=== PATIENT | female | born 1970 | race African-American/Black ===

== ENCOUNTER 2018-11-09 21:09 | Emergency (ER) | payer MEDICAID ==
[~2018-11-09] VITALS: Ht 152.4 cm; Wt 69.1 kg
[~2018-11-09 21:09] MED LIST: ACYC400T PO; CIPR500S4 PO; HYDR-3112 PO; HYDR-3965 PO
[2018-11-09] MEDS ORDERED: TRAZ-220 PO (21:28)
[2018-11-09] MEDS ORDERED: VENL50TA44 PO (21:28)
[2018-11-09] MEDS ORDERED: PRAZ1 PO (21:28)
[2018-11-09] MEDS ORDERED: KETOROLAC TROMETHAMINE 10 MG TABLET PO ONE (22:45)
[2018-11-09] MEDS ORDERED: CYCLOBENZAPRINE HCL 10 MG TABLET PO ONE (22:45)
[2018-11-10 01:12] VITALS: BP 127/58
== END 2018-11-10 01:37 | disposition home or self-care (01) ==
LOC: EMS 21:10
DX: M54.2 Cervicalgia (principal); Z88.0 Allergy status to penicillin; Z88.2 Allergy status to sulfonamides
CPT/HCPCS: 72040

== ENCOUNTER 2022-06-16 14:38 | Emergency (ER) | payer MEDICAID ==
[~2022-06-16] VITALS: Ht 157.5 cm; Wt 90.9 kg
[~2022-06-16 14:38] MED LIST changes: -ACYC400T PO; -CIPR500S4 PO; -HYDR-3112 PO; -HYDR-3965 PO; +HYDR25TA82 PO; +PRAZ1 PO; +TRAZ-257 PO; +VENL50TA44 PO
[2022-06-16 15:45] VITALS: BP 136/93
[2022-06-16] MEDS ORDERED: LORazepam 1 MG TABLET PO ONE (16:15)
[2022-06-16 16:17] LABS: BASOPHILS % (AUTO) 0.5 % (0.0-2.0); EOSINOPHILS % (AUTO) 0.5 % (1.0-6.0); HEMATOCRIT 43.3 % (36-46); HEMOGLOBIN 14.5 g/dL (12.0-16.0); LYMPHOCYTES # (AUTO) 3.2 K/uL (1.0-4.8); LYMPHOCYTES % (AUTO) 24.1 % (22.0-44.0); MEAN CORPUSCULAR HEMOGLOBIN 31.5 pg (26.0-34.0); MEAN CORPUSCULAR HGB CONC 33.5 G/dL (31.0-37.0); MEAN CORPUSCULAR VOLUME 94 fL (80-100); MONOCYTES # (AUTO) 0.6 K/uL (0.1-1.0); MONOCYTES % (AUTO) 4.8 % (2.0-9.0); NEUTROPHILS # (AUTO) 9.3 K/uL (1.8-7.7); NEUTROPHILS % (AUTO) 70.1 % (40.0-70.0); PLATELET COUNT (AUTO) 255 K/uL (150-450); RED BLOOD CELL COUNT(AUTO) 4.61 MIL/uL (4.00-5.20); RED CELL DISTRIBUTION WIDTH 12.8 % (11.5-14.5)
[2022-06-16 16:26] LABS: ANION GAP 5 mmol/L (8-16); CALCIUM, TOTAL 9.7 mg/dL (8.8-10.5); CARBON DIOXIDE 30 mmol/L (22-29); CHLORIDE 105 mmol/L (98-107); CREATININE 0.88 mg/dL (0.60-1.30); GLUCOSE,RANDOM 99 mg/dL (70-110); POTASSIUM 3.4 mmol/L (3.5-5.1); SODIUM SERUM 140 mmol/L (136-145); UREA NITROGEN, BLOOD 13 mg/dL (7-18)
[2022-06-16 16:30] LABS: GLOMERULAR FILTR. RATE CALC > 60 mL/min (>60)
[2022-06-16 16:32] LABS: ALANINE AMINOTRANSFERASE 40 U/L (12-78); ALBUMIN 3.8 g/dL (3.4-5.0); ALKALINE PHOSPHATASE 112 U/L (46-116); ASPARTATE AMINOTRANSFERASE 33 U/L (15-37); BILIRUBIN,TOTAL 0.4 mg/dL (0.1-1.0); TOTAL PROTEIN, SERUM 7.7 g/dL (6.4-8.2)
== END 2022-06-17 00:08 | disposition home or self-care (01) ==
LOC: EMS 14:42
DX: F41.9 Anxiety disorder, unspecified (principal); F31.9 Bipolar disorder, unspecified; F20.9 Schizophrenia, unspecified; B00.9 Herpesviral infection, unspecified; K64.9 Unspecified hemorrhoids; Z88.0 Allergy status to penicillin; Z88.2 Allergy status to sulfonamides
CPT/HCPCS: 99285; 80053; 85025; 36415; G0480

== ENCOUNTER 2022-06-18 08:17 | Emergency (ER) | payer MEDICAID ==
[~2022-06-18] VITALS: Ht 154.9 cm; Wt 75.0 kg
[2022-06-18] MEDS ORDERED: LORazepam 1 MG TABLET PO ONE (08:45)
[2022-06-18 09:34] LABS: BASOPHILS % (AUTO) 0.7 % (0.0-2.0); EOSINOPHILS % (AUTO) 1.2 % (1.0-6.0); HEMATOCRIT 40.9 % (36-46); HEMOGLOBIN 13.9 g/dL (12.0-16.0); LYMPHOCYTES # (AUTO) 3.2 K/uL (1.0-4.8); LYMPHOCYTES % (AUTO) 31.9 % (22.0-44.0); MEAN CORPUSCULAR HEMOGLOBIN 31.9 pg (26.0-34.0); MEAN CORPUSCULAR HGB CONC 33.9 G/dL (31.0-37.0); MEAN CORPUSCULAR VOLUME 94 fL (80-100); MONOCYTES # (AUTO) 0.6 K/uL (0.1-1.0); NEUTROPHILS # (AUTO) 6.1 K/uL (1.8-7.7); NEUTROPHILS % (AUTO) 60.2 % (40.0-70.0); PLATELET COUNT (AUTO) 225 K/uL (150-450); RED BLOOD CELL COUNT(AUTO) 4.36 MIL/uL (4.00-5.20); RED CELL DISTRIBUTION WIDTH 12.7 % (11.5-14.5)
[2022-06-18 09:47] LABS: ANION GAP 6 mmol/L (8-16); CALCIUM, TOTAL 9.4 mg/dL (8.8-10.5); CARBON DIOXIDE 29 mmol/L (22-29); CHLORIDE 102 mmol/L (98-107); CREATININE 0.74 mg/dL (0.60-1.30); GLOMERULAR FILTR. RATE CALC > 60 mL/min (>60); GLUCOSE,RANDOM 108 mg/dL (70-110); SODIUM SERUM 137 mmol/L (136-145); UREA NITROGEN, BLOOD 11 mg/dL (7-18)
[2022-06-18 09:50] LABS: INR 1.1 (0.9-1.1); PROTHROMBIN TIME 11.2 SEC (9.4-11.6)
[2022-06-18 09:51] LABS: ALANINE AMINOTRANSFERASE 41 U/L (12-78); ALBUMIN 3.8 g/dL (3.4-5.0); ALKALINE PHOSPHATASE 104 U/L (46-116); ASPARTATE AMINOTRANSFERASE 36 U/L (15-37); BILIRUBIN,TOTAL 0.7 mg/dL (0.1-1.0); TOTAL PROTEIN, SERUM 7.2 g/dL (6.4-8.2)
[2022-06-18 10:24] LABS: APPEARANCE,URINE CLEAR (CLEAR); BILIRUBIN,URINE NEGATIVE (NEGATIVE); GLUCOSE, URINE (UA) NEGATIVE (NEGATIVE); KETONES,URINE NEGATIVE (NEGATIVE); LEUKOCYTE ESTERASE ,URINE NEGATIVE (NEGATIVE); NITRATE,URINE NEGATIVE (NEGATIVE); OCCULT BLOOD,URINE NEGATIVE (NEGATIVE); PH,URINE 6.5 (5.0-8.0); PROTEIN,URINE NEGATIVE (NEGATIVE); SPECIFIC GRAVITIY, URINE 1.005 (1.003-1.030); UROBILINOGEN,URINE <=1.0 mg/dL (<=1.0)
[2022-06-18 10:27] LABS: AMPHET/METH SCREEN,URINE NEGATIVE (NEGATIVE); BARBITURATE SCREEN, URINE NEGATIVE (NEGATIVE); BENZODIAZEPINES SCREEN,URINE NEGATIVE (NEGATIVE); CANNABINOID SCREEN,URINE POSITIVE (NEGATIVE); COCAINE SCREEN,URINE NEGATIVE (NEGATIVE); METHADONE SCREEN, URINE NEGATIVE (NEGATIVE); OPIATE SCREEN,URINE NEGATIVE (NEGATIVE)
[2022-06-18 10:28] LABS: PHENCYCLIDINE SCREEN,URINE NEGATIVE (NEGATIVE)
[2022-06-18 10:35] LABS: BACTERIA,URINE None Seen /HPF (None Seen); RBC,URINE None Seen /HPF (0-2); SQUAMOUS EPITHELIAL CELL,UR None Seen /LPF (None Seen); WBC,URINE None Seen /HPF (0-5)
[2022-06-18 11:18] VITALS: BP 122/85
== END 2022-06-18 11:47 | disposition home or self-care (01) ==
LOC: EMS 08:50
DX: F41.9 Anxiety disorder, unspecified (principal); F20.9 Schizophrenia, unspecified; F31.9 Bipolar disorder, unspecified; K64.9 Unspecified hemorrhoids; Z88.0 Allergy status to penicillin; Z88.2 Allergy status to sulfonamides; Z87.440 Personal history of urinary (tract) infections
CPT/HCPCS: 70450; 71045; 80053; 81001; 84484; 85025; 85610; 85651; 85730; 93005; 99285; 36415-L1; 36415-TC

== ENCOUNTER 2022-06-26 06:31 | Emergency (ER) | payer MEDICAID ==
[~2022-06-26] VITALS: Ht 157.5 cm; Wt 75.0 kg
[2022-06-26] MEDS ORDERED: HydrOXYzine HCL 25 MG TABLET PO ONE (06:45)
[2022-06-26] MEDS ORDERED: IBUPROFEN 600 MG TABLET PO ONE (06:45)
[2022-06-26 07:52] LABS: APPEARANCE,URINE CLEAR (CLEAR); BILIRUBIN,URINE NEGATIVE (NEGATIVE); GLUCOSE, URINE (UA) NEGATIVE (NEGATIVE); KETONES,URINE NEGATIVE (NEGATIVE); LEUKOCYTE ESTERASE ,URINE NEGATIVE (NEGATIVE); NITRATE,URINE NEGATIVE (NEGATIVE); OCCULT BLOOD,URINE NEGATIVE (NEGATIVE); PH,URINE 6.5 (5.0-8.0); PROTEIN,URINE NEGATIVE (NEGATIVE); SPECIFIC GRAVITIY, URINE 1.007 (1.003-1.030); UROBILINOGEN,URINE <=1.0 mg/dL (<=1.0)
[2022-06-26 08:23] VITALS: BP 128/70
== END 2022-06-26 08:26 | disposition home or self-care (01) ==
LOC: EMS 06:32
DX: F41.9 Anxiety disorder, unspecified (principal); F31.9 Bipolar disorder, unspecified; F20.9 Schizophrenia, unspecified; B00.9 Herpesviral infection, unspecified; K64.9 Unspecified hemorrhoids; Z88.2 Allergy status to sulfonamides; Z88.0 Allergy status to penicillin
CPT/HCPCS: 81003; 84703; 99283

== ENCOUNTER 2022-07-01 09:36 | Emergency (ER) | payer MEDICAID ==
[~2022-07-01] VITALS: Ht 165.1 cm; Wt 75.0 kg
[2022-07-01 10:46] VITALS: BP 137/97
[2022-07-01] MEDS ORDERED: LORazepam 1 MG TABLET PO ONE (11:30)
== END 2022-07-01 11:46 | disposition home or self-care (01) ==
LOC: EMS 09:39
DX: R20.2 Paresthesia of skin (principal); F20.9 Schizophrenia, unspecified; F31.9 Bipolar disorder, unspecified; F41.9 Anxiety disorder, unspecified; Z87.440 Personal history of urinary (tract) infections; Z88.0 Allergy status to penicillin
CPT/HCPCS: 99283

== ENCOUNTER 2022-08-10 13:24 | Emergency (ER) | payer MEDICAID ==
[~2022-08-10] VITALS: Ht 154.9 cm; Wt 68.2 kg
[2022-08-10] MEDS ORDERED: LORazepam 2 MG/ML VIAL IVP ONE (13:30)
[2022-08-10 13:52] LABS: BASOPHILS % (AUTO) 0.8 % (0.0-2.0); EOSINOPHILS % (AUTO) 0.5 % (1.0-6.0); HEMATOCRIT 39.2 % (36-46); HEMOGLOBIN 13.1 g/dL (12.0-16.0); LYMPHOCYTES # (AUTO) 6.7 K/uL (1.0-4.8); LYMPHOCYTES % (AUTO) 38.2 % (22.0-44.0); MEAN CORPUSCULAR HEMOGLOBIN 31.2 pg (26.0-34.0); MEAN CORPUSCULAR HGB CONC 33.5 G/dL (31.0-37.0); MEAN CORPUSCULAR VOLUME 93 fL (80-100); MONOCYTES % (AUTO) 5.9 % (2.0-9.0); NEUTROPHILS # (AUTO) 9.6 K/uL (1.8-7.7); NEUTROPHILS % (AUTO) 54.6 % (40.0-70.0); PLATELET COUNT (AUTO) 259 K/uL (150-450); RED BLOOD CELL COUNT(AUTO) 4.21 MIL/uL (4.00-5.20); RED CELL DISTRIBUTION WIDTH 13.1 % (11.5-14.5)
[2022-08-10 14:03] LABS: CALCIUM, TOTAL 9.5 mg/dL (8.8-10.5); CREATININE 0.98 mg/dL (0.60-1.30); POTASSIUM 3.6 mmol/L (3.5-5.1)
[2022-08-10 14:08] LABS: ALBUMIN 3.9 g/dL (3.4-5.0); BILIRUBIN,TOTAL 0.3 mg/dL (0.1-1.0); TOTAL PROTEIN, SERUM 7.2 g/dL (6.4-8.2)
[2022-08-10 16:00] VITALS: BP 122/72
== END 2022-08-10 16:14 | disposition home or self-care (01) ==
LOC: EMS 13:42
DX: F41.9 Anxiety disorder, unspecified (principal); F31.9 Bipolar disorder, unspecified; F20.9 Schizophrenia, unspecified; Z88.0 Allergy status to penicillin; Z88.2 Allergy status to sulfonamides
CPT/HCPCS: 99285; 96374; 70450; 71045; 80053; 82962; 84484; 85025; 36415; 93005; J2060

== ENCOUNTER 2022-08-11 06:15 | Emergency (ER) | payer MEDICAID ==
[~2022-08-11] VITALS: Ht 152.4 cm; Wt 72.7 kg
[2022-08-11] MEDS ORDERED: LORazepam 1 MG TABLET PO ONE (07:00)
[2022-08-11 07:04] LABS: BASOPHILS % (AUTO) 0.5 % (0.0-2.0); EOSINOPHILS % (AUTO) 1.6 % (1.0-6.0); HEMATOCRIT 38.6 % (36-46); HEMOGLOBIN 13.1 g/dL (12.0-16.0); LYMPHOCYTES # (AUTO) 4.5 K/uL (1.0-4.8); LYMPHOCYTES % (AUTO) 43.1 % (22.0-44.0); MEAN CORPUSCULAR HGB CONC 33.8 G/dL (31.0-37.0); MEAN CORPUSCULAR VOLUME 95 fL (80-100); MONOCYTES # (AUTO) 0.5 K/uL (0.1-1.0); MONOCYTES % (AUTO) 4.4 % (2.0-9.0); NEUTROPHILS # (AUTO) 5.3 K/uL (1.8-7.7); NEUTROPHILS % (AUTO) 50.4 % (40.0-70.0); PLATELET COUNT (AUTO) 235 K/uL (150-450); RED BLOOD CELL COUNT(AUTO) 4.08 MIL/uL (4.00-5.20); RED CELL DISTRIBUTION WIDTH 12.9 % (11.5-14.5)
[2022-08-11 07:11] LABS: ANION GAP 4 mmol/L (8-16); CALCIUM, TOTAL 9.7 mg/dL (8.8-10.5); CARBON DIOXIDE 33 mmol/L (22-29); CHLORIDE 106 mmol/L (98-107); CREATININE 0.75 mg/dL (0.60-1.30); GLUCOSE,RANDOM 118 mg/dL (70-110); POTASSIUM 5.2 mmol/L (3.5-5.1); SODIUM SERUM 143 mmol/L (136-145); UREA NITROGEN, BLOOD 11 mg/dL (7-18)
[2022-08-11 07:12] LABS: GLOMERULAR FILTR. RATE CALC > 60 mL/min (>60)
[2022-08-11 07:16] LABS: ALANINE AMINOTRANSFERASE 29 U/L (12-78); ALBUMIN 3.7 g/dL (3.4-5.0); ALKALINE PHOSPHATASE 89 U/L (46-116); ASPARTATE AMINOTRANSFERASE 20 U/L (15-37); BILIRUBIN,TOTAL 0.3 mg/dL (0.1-1.0); PHOSPHORUS 3.4 mg/dL (2.5-4.9); TOTAL PROTEIN, SERUM 7.1 g/dL (6.4-8.2)
[2022-08-11 07:37] VITALS: BP 108/75
== END 2022-08-11 08:23 | disposition home or self-care (01) ==
LOC: EMS 06:17
DX: R20.2 Paresthesia of skin (principal); F31.9 Bipolar disorder, unspecified; F20.9 Schizophrenia, unspecified; F41.9 Anxiety disorder, unspecified; Z90.89 Acquired absence of other organs
CPT/HCPCS: 80053; 83735; 84100; 85025; 99283

== ENCOUNTER 2022-10-20 09:28 | Emergency (ER) | payer MEDICAID ==
[~2022-10-20] VITALS: Ht 154.9 cm; Wt 75.0 kg
[2022-10-20] MEDS ORDERED: QUET25TA36 PO (09:37)
[2022-10-20] MEDS ORDERED: FLUT16H NASAL (09:37)
[2022-10-20] MEDS ORDERED: BUPR-317 PO (09:37)
[2022-10-20] MEDS ORDERED: CLON1TAB12 PO (09:37)
[2022-10-20] MEDS ORDERED: CETI10TA58 PO (09:37)
[2022-10-20] MEDS ORDERED: BUPR-49 PO (09:37)
[2022-10-20] MEDS ORDERED: DULO-114 PO (09:37)
[2022-10-20] MEDS ORDERED: DOCU100C33 PO (09:37)
[2022-10-20] MEDS ORDERED: FAMO20TA8 PO (09:37)
[2022-10-20] MEDS ORDERED: DEXAMETHASONE SOD PHOS 4 MG/ML 5 ML VIAL IM ONE (13:30)
[2022-10-20] MEDS ORDERED: ACYCLOVIR 200 MG CAPSULE PO ONE (13:45)
[2022-10-20] MEDS ORDERED: PRED-554 PO (14:28)
[2022-10-20] MEDS ORDERED: ACYC400T20 PO (14:29)
[2022-10-20 15:42] VITALS: BP 142/94
== END 2022-10-20 15:44 | disposition home or self-care (01) ==
LOC: EMS 09:30
DX: G51.0 Bell's palsy (principal); F41.9 Anxiety disorder, unspecified; F31.9 Bipolar disorder, unspecified; F20.9 Schizophrenia, unspecified; B00.9 Herpesviral infection, unspecified; Z88.0 Allergy status to penicillin; Z88.2 Allergy status to sulfonamides
CPT/HCPCS: 99285; 70450; 96372; J1100